=== PATIENT | female | born 1990 | race American Indian/Alaskan Native ===

== ENCOUNTER 2021-10-07 22:00 | Observation (INO) | payer MEDICAID ==
[2021-10-07] MEDS ORDERED: SODIUM CHLORIDE 0.9% 1000 ML 1,000 ML IV ONE (22:54)
--- NOTE | 2021-10-07 23:03 | Emergency Department Report ---
ED Chest Pain HPI - General Chief Complaint: Pain General Stated Complaint: PAIN, POST OP Time Seen by Provider: 10/07/21 22:28 Source: EMS Mode of arrival: Stretcher Limitations: No Limitations - History of Present Illness Initial Comments: 31-year-old female the past medical history of asthma presents to the hospital complaining of chest pain and shortness of breath while returning from [place] today. Patient received a BBL surgery in [place] on October 04. She flew back today. She states while on the plane she had chest tightness and shortness of breath. She did not have access to her inhaler at the time. Symptoms have since resolved however, she expresses concern that she might have a blood clot. Patient also complains of generalized body pain secondary to BBL. She is currently taking Percocet 5 mg with last dose 4 hours ago - Related Data Allergies Allergy/AdvReac Type Severity Reaction Status Date / Time No Known Allergies Allergy Verified 10/07/21 23:00 Heart Score - HEART Score History: Slightly suspicious EKG: Normal Age: < 45 Risk factors: 1-2 risk factors Troponin: < normal limit HEART Score: 1 - EKG Read Time Time EKG Completed: 05:28 EKG Read Time: 05:34 ED Review of Systems ROS: Stated complaint: PAIN, POST OP Other details as noted in HPI Comment: All other systems reviewed and negative ED Physical Exam - General Limitations: No Limitations - Other Other exam information: General: No acute distress Head: Atraumatic Eyes: normal appearance ENT: Moist mucous membranes Neck: Normal appearance, no midline tenderness Chest: Clear to auscultation bilaterally CV: Regular rate and rhythm Abdomen: abdominal binder body suit on with serosanguineous drainage Back: Normal inspection Extremity: Normal inspection, full range of motion Neuro: Alert O x 3, no facial asymmetry, speech clear, no gross motor sensory deficit Psych: Appropriate behavior Skin: No rash ED Course Vital Signs 10/07/21 10/07/21 10/07/21 22:54 23:28 23:31 Temperature Pulse Rate Respiratory Rate Blood Pressure 127/76 Blood Pressure [Right] O2 Sat by Pulse 100 100 100 Oximetry 10/07/21 10/08/21 10/08/21 23:45 00:01 01:14 Temperature 98.1 F Pulse Rate 100 H Respiratory 18 Rate Blood Pressure 127/76 130/76 Blood Pressure 127/68 [Right] O2 Sat by Pulse 99 100 100 Oximetry - Reevaluation(s) Reevaluation #1: 10/08/21 04:52 During ED stay patient had persistent tachycardia. Heart rate was in the 120s while on the phone with minimal movement. At rest while sleeping heart rate will go down to 100-105. Patient denied being in pain during this time. After 2 L of normal saline repeat hemoglobin down to 7.3. Patient does endorsed shortness of breath and lightheadedness therefore patient will be admitted for blood transfusion. CT abdomen and pelvis will be performed to rule out possible fluid/blood collection. It is likely the patient had acute loss from initial procedure does not appear to have any active hemorrhage. No signs of hypotension during ED stay YURY score - Yury Score Age > 65: (0) No Aspirin use within the Past 7 Days: (0) No 3 or more CAD Risk Factors: (0) No 2 or more Angina events in past 24 hrs: (0) No Known CAD with more than 50% Stenosis: (0) No Elevated Cardiac Markers: (0) No ST Deviation Greater than 0.5mm: (0) No YURY Score: 0 ED Medical Decision Making - Lab Data Result diagrams: 10/08/21 03:44 10/07/21 23:09 Lab Results 10/07/21 10/07/21 10/07/21 Range/Units 23:09 23:09 23:09 WBC 11.1 H (4.5-11.0) K/mm3 RBC 2.30 L (3.65-5.03) M/mm3 Hgb 7.6 L (10.1-14.3) gm/dl Hct 22.7 L (30.3-42.9) % MCV 99 H (79-97) fl MCH 33 H (28-32) pg MCHC 33 (30-34) % RDW 13.0 L (13.2-15.2) % Plt Count 325 (140-440) K/mm3 Lymph % (Auto) 16.6 (13.4-35.0) % [place] % (Auto) 8.4 H (0.0-7.3) % Eos % (Auto) 0.3 (0.0-4.3) % Baso % (Auto) 0.2 (0.0-1.8) % Lymph # (Auto) 1.8 (1.2-5.4) K/mm3 [place] # (Auto) 0.9 H (0.0-0.8) K/mm3 Eos # (Auto) 0.0 (0.0-0.4) K/mm3 Baso # (Auto) 0.0 (0.0-0.1) K/mm3 Seg Neutrophils % 74.5 H (40.0-70.0) % Seg Neutrophils # 8.2 H (1.8-7.7) K/mm3 Sodium 133 L (137-145) mmol/L Potassium 3.6 (3.6-5.0) mmol/L Chloride 94.9 L (98-107) mmol/L Carbon Dioxide 20 L (22-30) mmol/L Anion Gap 22 mmol/L BUN 6 L (7-17) mg/dL Creatinine 0.6 (0.6-1.2) mg/dL Estimated GFR > 60 ml/min BUN/Creatinine Ratio 10 % Glucose 112 H (65-100) mg/dL Calcium 8.8 (8.4-10.2) mg/dL Troponin T < 0.010 (0.00-0.029) ng/mL HCG, Quant (0-4) mIU/mL Blood Type Crossmatch 10/07/21 10/08/21 10/08/21 Range/Units 23:09 03:44 03:44 WBC (4.5-11.0) K/mm3 RBC (3.65-5.03) M/mm3 Hgb 7.3 L (10.1-14.3) gm/dl Hct 22.1 L (30.3-42.9) % MCV (79-97) fl MCH (28-32) pg MCHC (30-34) % RDW (13.2-15.2) % Plt Count (140-440) K/mm3 Lymph % (Auto) (13.4-35.0) % [place] % (Auto) (0.0-7.3) % Eos % (Auto) (0.0-4.3) % Baso % (Auto) (0.0-1.8) % Lymph # (Auto) (1.2-5.4) K/mm3 [place] # (Auto) (0.0-0.8) K/mm3 Eos # (Auto) (0.0-0.4) K/mm3 Baso # (Auto) (0.0-0.1) K/mm3 Seg Neutrophils % (40.0-70.0) % Seg Neutrophils # (1.8-7.7) K/mm3 Sodium (137-145) mmol/L Potassium (3.6-5.0) mmol/L Chloride (98-107) mmol/L Carbon Dioxide (22-30) mmol/L Anion Gap mmol/L BUN (7-17) mg/dL Creatinine (0.6-1.2) mg/dL Estimated GFR ml/min BUN/Creatinine Ratio % Glucose (65-100) mg/dL Calcium (8.4-10.2) mg/dL Troponin T (0.00-0.029) ng/mL HCG, Quant < 2 (0-4) mIU/mL Blood Type O POSITIVE Crossmatch See Detail - EKG Data -: EKG Interpreted by Tx EKG shows normal: sinus rhythm, ST-T waves (no stemi) Rate: tachycardia (103) - EKG Data When compared to previous EKG there are: previous EKG unavailable - Radiology Data Radiology results: report reviewed CTA CHEST WITH CONTRAST INDICATION / CLINICAL INFORMATION: chest pain, sob, recent surgery. TECHNIQUE: Axial CT images were obtained through the chest after injection of 100 cc Omnipaque 350 IV contrast. 3 plane MIP and/or 3D reconstructions were produced. All CT scans at this location are performed using CT dose reduction for ALARA by means of automated exposure control. COMPARISON: None available. FINDINGS: VASCULAR FINDINGS: PULMONARY ARTERY: Pulmonary artery is normal in size. No filling defects are present compatible with pulmonary artery embolus.. THORACIC AORTA: No significant abnormality. CORONARY ARTERY CALCIFICATION: Absent -- None. NONVASCULAR FINDINGS: LOWER NECK: Soft tissues and musculature of the lower neck demonstrate no significant abnormality. The thyroid demonstrates no significant abnormality. HEART: No significant abnormality. MEDIASTINUM / LATRICIA: No significant abnormality. ESOPHAGUS: No significant abnormality. LYMPH NODES: No adenopathy within the axilla, mediastinum, or latricia. LUNGS: No acute air space or interstitial disease. PLEURA: No pleural effusion. No pneumothorax. THORACIC SOFT TISSUES: Small collections of subcutaneous gas are noted overlying the mid axillary line of the lower right rib cage. BONES: No significant skeletal abnormalities. ADDITIONAL CHEST FINDINGS: None. UPPER ABDOMEN: Mild hepatic steatosis. IMPRESSION: 1. No CT evidence for pulmonary embolism. 2. Subcutaneous gas right chest wall as detailed may relate to recent surgery. CT ABDOMEN AND PELVIS WITHOUT CONTRAST INDICATION / CLINICAL INFORMATION: anemia s/p BBL. TECHNIQUE: Axial CT images were obtained through the abdomen and pelvis without IV contrast. All CT scans at this location are performed using CT dose reduction for ALARA by means of automated exposure control. COMPARISON: CT angiography of the chest 10/08/2021 FINDINGS: LOWER CHEST: No significant abnormality of the imaged chest. LIVER: No focal lesion. No acute findings. GALLBLADDER / BILE DUCTS: No significant abnormality. Biliary ducts grossly unremarkable. SPLEEN: No significant abnormality. PANCREAS: No significant abnormality. ADRENALS: No significant abnormality. KIDNEYS/URETERS: No stones or hydronephrosis. No solid renal lesion. Residual contrast within the renal collecting system. STOMACH / DUODENUM / SMALL BOWEL: The stomach, duodenum, and small bowel demonstrate no significant abnormality. No specific abnormality of the mesentery demonstrated. COLON: No significant abnormality. APPENDIX: No significant abnormality. PERITONEUM: No free air or free fluid are present within the abdomen or pelvis. LYMPH NODES: No significant adenopathy. AORTA / ARTERIES: No significant abnormality. IVC / VEINS: No significant abnormality. URINARY BLADDER: No significant abnormality. Residual contrast from prior study. REPRODUCTIVE ORGANS: No significant abnormality. ADDITIONAL ABDOMINAL/PELVIC FINDINGS: Small collections of subcutaneous gas are present within the soft tissues of the sac. Additional subcutaneous reticular attenuation suggesting edema are present. SKELETAL SYSTEM: No significant abnormality. IMPRESSION: 1. Body wall edema and areas of subcutaneous gas likely related to recent procedure. - Medical Decision Making 31-year-old female presents to the hospital complaints of chest pain and shortness of breath. Pulmonary embolism was ruled out with CT angiogram. Patient also found to have symptomatic anemia with persistent tachycardia despite IV fluids and pain control. [address] abdomen and pelvis does not show acute fluid collection or hemorrhage. Anemia likely a result from blood loss from initial procedure. 1 unit of PRBCs ordered. Patient to be admitted to the hospitalist service Critical Care Time: No Critical care attestation.: If time is entered above; I have spent that time in minutes in the direct care of this critically ill patient, excluding procedure time. ED Disposition Clinical Impression: Symptomatic anemia, Postoperative anemia Disposition: 09 ADMITTED INPATIENT Is pt being admited?: Yes Condition: Stable Time of Disposition: 05:37 (Dr Meraz)
[2021-10-07 23:37] LABS: Basophils % (Auto) 0.2 % (0.0-1.8); Eosinophils % (Auto) 0.3 % (0.0-4.3); Hematocrit 22.7 % (30.3-42.9); Hemoglobin 7.6 gm/dl (10.1-14.3); Lymphocytes # (Auto) 1.8 K/mm3 (1.2-5.4); Lymphocytes % (Auto) 16.6 % (13.4-35.0); Mean Corpuscular HGB Conc 33 % (30-34); Mean Corpuscular Volume 99 fl (79-97); Monocytes # (Auto) 0.9 K/mm3 (0.0-0.8); Monocytes % (Auto) 8.4 % (0.0-7.3); Platelet Count 325 K/mm3 (140-440)
[2021-10-07 23:52] LABS: Blood Urea Nitrogen 6 mg/dL (7-17); Calcium 8.8 mg/dL (8.4-10.2); Hemolysis Index 0
[2021-10-07 23:54] LABS: BUN/Creatinine Ratio 10
[2021-10-07] MEDS ORDERED: ONDANSETRON 4 MG/2 ML INJ IV ONE (23:54)
[2021-10-07] MEDS ORDERED: MORPHINE 4 MG/1 ML INJ IV ONE (23:54)
--- NOTE | 2021-10-08 01:08 | Cat Scan Report ---
CTA CHEST WITH CONTRAST INDICATION / CLINICAL INFORMATION: chest pain, sob, recent surgery. TECHNIQUE: Axial CT images were obtained through the chest after injection of 100 cc Omnipaque 350 IV contrast. 3 plane MIP and/or 3D reconstructions were produced. All CT scans at this location are per formed using CT dose reduction for ALARA by means of automated exposure control. COMPARISON: None available. FINDINGS: VASCULAR FINDINGS: PULMONARY ARTERY: Pulmonary artery is normal in size. No filling defects are present compatible with pulmonary artery embolus.. THORACIC AORTA: No significant abnormality. CORONARY ARTERY CALCIFICATION: Absent -- None. NONVASCULAR FINDINGS: LOWER NECK: Soft tissues and musculature of the lower neck demonstrate no significant abnormality. Th e thyroid demonstrates no significant abnormality. HEART: No significant abnormality. MEDIASTINUM / LATRICIA: No significant abnormality. ESOPHAGUS: No significant abnormality. LYMPH NODES: No adenopathy within the axilla, mediastinum, or latricia. LUNGS: No acute air space or interstitial disease. PLEURA: No pleural effusion. No pneumothorax. THORACIC SOFT TISSUES: Small collections of subcutaneous gas are noted overlying the mid axillary jose g e of the lower right rib cage. BONES: No significant skeletal abnormalities. ADDITIONAL CHEST FINDINGS: None. UPPER ABDOMEN: Mild hepatic steatosis. IMPRESSION: 1. No CT evidence for pulmonary embolism. 2. Subcutaneous gas right chest wall as detailed may relate to recent surgery. Signer Name: Florencio Jay II, MD Signed: 10/08/2021 1:03 AM Workstation Name: [id number]
[2021-10-08] MEDS ORDERED: SODIUM CHLORIDE 0.9% 1000 ML 1,000 ML IV ONE (01:35)
[2021-10-08 04:17] LABS: Hematocrit 22.1 % (30.3-42.9); Hemoglobin 7.3 gm/dl (10.1-14.3)
[2021-10-08] MEDS ORDERED: SODIUM CHLORIDE 0.9% 500 ML 500 ML IV ONE (04:36)
--- NOTE | 2021-10-08 05:28 | Cat Scan Report ---
CT ABDOMEN AND PELVIS WITHOUT CONTRAST INDICATION / CLINICAL INFORMATION: anemia s/p BBL. TECHNIQUE: Axial CT images were obtained through the abdomen and pelvis without IV contrast. All CT scans at this location are performed using CT dose reduction for ALARA by means of automated exposure control. COMPARISON: CT angiography of the chest 10/08/2021 FINDINGS: LOWER CHEST: No significant abnormality of the imaged chest. LIVER: No focal lesion. No acute findings. GALLBLADDER / BILE DUCTS: No significant abnormality. Biliary ducts grossly unremarkable. SPLEEN: No significant abnormality. PANCREAS: No significant abnormality. ADRENALS: No significant abnormality. KIDNEYS/URETERS: No stones or hydronephrosis. No solid renal lesion. Residual contrast within the radha al collecting system. STOMACH / DUODENUM / SMALL BOWEL: The stomach, duodenum, and small bowel demonstrate no significant a bnormality. No specific abnormality of the mesentery demonstrated. COLON: No significant abnormality. APPENDIX: No significant abnormality. PERITONEUM: No free air or free fluid are present within the abdomen or pelvis. LYMPH NODES: No significant adenopathy. AORTA / ARTERIES: No significant abnormality. IVC / VEINS: No significant abnormality. URINARY BLADDER: No significant abnormality. Residual contrast from prior study. REPRODUCTIVE ORGANS: No significant abnormality. ADDITIONAL ABDOMINAL/PELVIC FINDINGS: Small collections of subcutaneous gas are present within the so ft tissues of the sac. Additional subcutaneous reticular attenuation suggesting edema are present. SKELETAL SYSTEM: No significant abnormality. IMPRESSION: 1. Body wall edema and areas of subcutaneous gas likely related to recent procedure. Signer Name: Florencio Jay II, MD Signed: 10/08/2021 5:24 AM Workstation Name: [id number]
[2021-10-08] MEDS ORDERED: ACETAMINOPHEN 325 MG TAB PO PRN (05:48)
[2021-10-08] MEDS ORDERED: ALBUTEROL 2.5 MG/3 ML NEBU IH PRN (05:48)
[2021-10-08] MEDS ORDERED: MORPHINE 4 MG/1 ML INJ IV PRN (05:48)
[2021-10-08] MEDS ORDERED: ONDANSETRON 4 MG/2 ML INJ IV PRN (05:48)
[2021-10-08] MEDS ORDERED: MORPHINE 2 MG/1 ML INJ IV PRN (05:48)
--- NOTE | 2021-10-08 05:55 | History and Physical Report ---
History of Present Illness Date of examination: 10/08/21 Date of admission: 10/08/21 Chief complaint: Pain General History of present illness: 31-year-old female the past medical history of asthma presents to the hospital complaining of chest pain and shortness of breath while returning from [place] today. Patient received a BBL surgery in [place] on October 04. She flew back today. She states while on the plane she had chest tightness and shortness of breath. She did not have access to her inhaler at the time. Symptoms have since resolved however, she expresses concern that she might have a blood clot. Patient also complains of generalized body pain secondary to BBL. In the emergency room patient is found to have a hemoglobin of 7.[address] shows no CT evidence for PE. Subcutaneous gas right chest wall as detailed may related to recent surgery Past History Past Medical History: other (Asthma) Past Surgical History: Other (BBL) Social history: no significant social history Family history: no significant family history Medications and Allergies Allergies Allergy/AdvReac Type Severity Reaction Status Date / Time No Known Allergies Allergy Verified 10/07/21 23:00 Active Meds: Active Medications Acetaminophen (Acetaminophen 325 Mg Tab) 650 mg PO Q4H PRN PRN Reason: Pain MILD(1-3)/Fever >100.5/WATTS Review of Systems Constitutional: other (Generalized pain) Cardiovascular: chest pain, shortness of breath Exam - Constitutional Vitals: Temp Pulse Resp BP Pulse Ox 98.1 F 100 H 18 127/68 100 10/08/21 01:14 10/08/21 01:14 10/08/21 01:14 10/08/21 01:14 10/08/21 01:14 General appearance: Present: no acute distress, well-nourished - EENT Eyes: Present: PERRL ENT: hearing intact, clear oral mucosa - Neck Neck: Present: supple, normal ROM - Respiratory Respiratory effort: normal Respiratory: bilateral: CTA - Cardiovascular Heart Sounds: Present: S1 & S2. Absent: rub, click - Extremities Extremities: pulses symmetrical, No edema Peripheral Pulses: within normal limits - Abdominal General gastrointestinal: Present: soft, non-tender, non-distended, normal bowel sounds Female genitourinary: Present: normal - Integumentary Integumentary: Present: clear, warm, dry - Musculoskeletal Musculoskeletal: gait normal, strength equal bilaterally - Psychiatric Psychiatric: appropriate mood/affect, intact judgment & insight - Neurologic Neurologic: CNII-XII intact, moves all extremities HEART Score - HEART Score EKG: Normal Age: < 45 Risk factors: 1-2 risk factors Troponin: Troponin T < 0.010 ng/mL (0.00-0.029) 10/07/21 23:09 Troponin: < normal limit Results - Labs CBC & Chem 7: 10/08/21 03:44 10/07/21 23:09 Labs: Laboratory Last Values WBC 11.1 K/mm3 (4.5-11.0) H 10/07/21 23:09 RBC 2.30 M/mm3 (3.65-5.03) L 10/07/21 23:09 Hgb 7.3 gm/dl (10.1-14.3) L 10/08/21 03:44 Hct 22.1 % (30.3-42.9) L 10/08/21 03:44 MCV 99 fl (79-97) H 10/07/21 23:09 MCH 33 pg (28-32) H 10/07/21 23:09 MCHC 33 % (30-34) 10/07/21 23:09 RDW 13.0 % (13.2-15.2) L 10/07/21 23:09 Plt Count 325 K/mm3 (140-440) 10/07/21 23:09 Lymph % (Auto) 16.6 % (13.4-35.0) 10/07/21 23:09 [place] % (Auto) 8.4 % (0.0-7.3) H 10/07/21 23:09 Eos % (Auto) 0.3 % (0.0-4.3) 10/07/21 23:09 Baso % (Auto) 0.2 % (0.0-1.8) 10/07/21 23:09 Lymph # (Auto) 1.8 K/mm3 (1.2-5.4) 10/07/21 23:09 [place] # (Auto) 0.9 K/mm3 (0.0-0.8) H 10/07/21 23:09 Eos # (Auto) 0.0 K/mm3 (0.0-0.4) 10/07/21 23:09 Baso # (Auto) 0.0 K/mm3 (0.0-0.1) 10/07/21 23:09 Seg Neutrophils % 74.5 % (40.0-70.0) H 10/07/21 23:09 Seg Neutrophils # 8.2 K/mm3 (1.8-7.7) H 10/07/21 23:09 Sodium 133 mmol/L (137-145) L 10/07/21 23:09 Potassium 3.6 mmol/L (3.6-5.0) 10/07/21 23:09 Chloride 94.9 mmol/L (98-107) L 10/07/21 23:09 Carbon Dioxide 20 mmol/L (22-30) L 10/07/21 23:09 Anion Gap 22 mmol/L 10/07/21 23:09 BUN 6 mg/dL (7-17) L 10/07/21 23:09 Creatinine 0.6 mg/dL (0.6-1.2) 10/07/21 23:09 Estimated GFR > 60 ml/min 10/07/21 23:09 BUN/Creatinine Ratio 10 % 10/07/21 23:09 Glucose 112 mg/dL (65-100) H 10/07/21 23:09 Calcium 8.8 mg/dL (8.4-10.2) 10/07/21 23:09 Troponin T < 0.010 ng/mL (0.00-0.029) 10/07/21 23:09 HCG, Quant < 2 mIU/mL (0-4) 10/07/21 23:09 Blood Type O POSITIVE 10/08/21 03:44 Antibody Screen Negative 10/08/21 03:44 Crossmatch See Detail 10/08/21 03:44 - Imaging and Cardiology CT scan - chest: report reviewed Assessment and Plan VTE prophylaxis?: Mechanical Plan of care discussed with patient/family: Yes - Patient Problems (1) Symptomatic anemia Current Visit: Yes Status: Acute Plan to address problem: Admit the patient to the medical floor. Anemia secondary to recent surgery. We will transfuse 1 unit of packed red blood cell. Pepcid 20 mg p.o. twice daily. We will recheck the CBC. (2) Asthma Current Visit: Yes Status: Acute Plan to address problem: Oxygen via nasal cannula 3 L/min. DuoNeb by nebulizer every 4 hours. Albuterol via nebulizer every 4 hours as needed (3) Chest pain Current Visit: Yes Status: Acute Plan to address problem: Initial cardiac enzyme is negative troponin 0.010. We will monitor the patient closely. We do the serial cardiac enzyme (4) Postoperative anemia Current Visit: Yes Status: Acute Plan to address problem: We will transfuse 1 unit of packed red blood cell. Pepcid 20 mg p.o. twice daily. We will recheck the CBC. (5) DVT prophylaxis Current Visit: Yes Status: Acute Plan to address problem: SCD for DVT prophylaxis. Pepcid 20 mg p.o. twice daily for GI prophylaxis. Patient is a full code
[2021-10-08] MEDS ORDERED: CLINDAMYCIN 600 MG/50 mL 600 MG/50 ML BAG IV SCH (06:00)
[2021-10-08] MEDS: IPRATROPIUM/ALBUTEROL SULFATE 3 ML AMPUL.NEB IH SCH ×3 (09:11→20:51)
[2021-10-08] MEDS ORDERED: FAMOTIDINE 20 MG TAB PO SCH (10:00)
--- NOTE | 2021-10-08 10:07 | Electrocardiograph Report ---
[facility] Test Date: 2021-10-08 Test Time: 05:28:29 Pat Name: MELBA MTZ Department: Room: [place] [address] Gender: F Rfid Technician: FLYNN : 1990 Requested By: DANISH ROJO Order Number: [id number] Reading MD: Tonio Celeste Measurements Intervals [place] Rate: 103 P: 54 PA: 126 QRS: 67 QRSD: 77 T: -19 QT: 361 QTc: 472 Interpretive Statements Sinus tachycardia Borderline T abnormalities, diffuse leads No previous ECG available for comparison Electronically Signed On 10-08-2021 10:07:05 EDT by Tonio Celeste
--- NOTE | 2021-10-08 15:48 | Discharge Summary ---
Providers - Providers Date of Admission: 10/08/21 05:49 Date of discharge: 10/08/21 Attending physician: CHARLINE BELL Primary care physician: BUSINESS ENGLISH INSTRUCTOR Hospitalization Condition: Stable Hospital course: 31-year-old female the past medical history of asthma presents to the hospital complaining of chest pain and shortness of breath while returning from [place] today. Patient received a BBL surgery in [place] on October 04. She flew back today. She states while on the plane she had chest tightness and shortness of breath. She did not have access to her inhaler at the time. Symptoms have since resolved however, she expresses concern that she might have a blood clot. Patient also complains of generalized body pain secondary to BBL. In the emergency room patient is found to have a hemoglobin of 7.[address] shows no CT evidence for PE. Subcutaneous gas right chest wall as detailed may related to recent surgery patient had a hemoglobin of 7.6 Assessment and Plan VTE prophylaxis?: Mechanical Plan of care discussed with patient/family: Yes - Patient Problems (1) Symptomatic anemia Current Visit: Yes Status: Acute Plan to address problem: Patient was transfused 1 unit of packed red blood cells Patient symptomatically better Patient had hemoglobin of 7.6 patient should have been treated with iron instead of he 1 unit of. Patient will be discharged on iron tablets r packed red blood cells -- (2) Asthma Current Visit: Yes Status: Acute Plan to address problem: Oxygen via nasal cannula 3 L/min. DuoNeb by nebulizer every 4 hours. Albuterol via nebulizer every 4 hours as needed (3) Chest pain Current Visit: Yes Status: Acute Plan to address problem: Initial cardiac enzyme is negative troponin 0.010. We will monitor the patient closely. We do the serial cardiac enzyme (4) Postoperative anemia Current Visit: Yes Status: Acute Plan to address problem: We will transfuse 1 unit of packed red blood cell. Pepcid 20 mg p.o. twice daily. We will recheck the CBC. (5) DVT prophylaxis Current Visit: Yes Status: Acute Plan to address problem: SCD for DVT prophylaxis. Pepcid 20 mg p.o. twice daily for GI prophylaxis. Patient is a full code Disposition: 01 HOME / SELF CARE / HOMELESS Final Discharge Diagnosis (Prints w/discharge instructions): symptomatic anemia. Postoperative anemia. Asthma. Atypical chest pain Time spent for discharge: 35 minutes - Discharge Diagnoses (1) Symptomatic anemia Status: Acute (2) Asthma Status: Acute (3) Chest pain Status: Acute (4) Postoperative anemia Status: Acute (5) DVT prophylaxis Status: Acute Core Measure Documentation - Palliative Care Palliative Care/ Comfort Measures: Not Applicable - Core Measures Any of the following diagnoses?: none Exam - Constitutional Vitals: Temp Pulse Resp BP Pulse Ox 98.5 F 116 H 17 154/69 99 10/08/21 13:14 10/08/21 15:16 10/08/21 15:16 10/08/21 15:16 10/08/21 15:16 General appearance: Present: no acute distress, well-nourished - EENT Eyes: Present: PERRL ENT: hearing intact, clear oral mucosa - Neck Neck: Present: supple, normal ROM - Respiratory Respiratory effort: normal Respiratory: bilateral: CTA - Cardiovascular Heart rate: 76 Rhythm: regular Heart Sounds: Present: S1 & S2. Absent: rub, click - Extremities Extremities: pulses symmetrical, No edema Peripheral Pulses: within normal limits - Abdominal General gastrointestinal: Present: soft, non-tender, non-distended, normal bowel sounds Female genitourinary: Present: normal - Integumentary Integumentary: Present: clear, warm, dry - Musculoskeletal Musculoskeletal: gait normal, strength equal bilaterally - Psychiatric Psychiatric: appropriate mood/affect, intact judgment & insight - Neurologic Neurologic: CNII-XII intact, moves all extremities Plan Activity: no restrictions Diet: regular Follow up with: PRIMARY CARE, [Primary Care Provider] - 7 Days
[2021-10-08 20:18] VITALS: BP 145/65
== END 2021-10-08 20:19 | disposition home or self-care (01) ==
LOC: ED 22:00 → INTOOBSV 10-08 05:49 → 3A 10-08 05:49
PROVIDERS: ADMIT Hospitalist; ATTEND Internal Medicine
DX: D64.9 Anemia, unspecified (principal); J45.909 Unspecified asthma, uncomplicated; R07.89 Other chest pain; D64.89 Other specified anemias; Z79.899 Other long term (current) drug therapy; Z98.890 Other specified postprocedural states
CPT/HCPCS: 36415; 71275; 74176; 80048; 84484; 84702; 85014; 85018; 85025; 86850; 86900; 86901; 86920; 93005; 96361; 96365; 96375; 96376; 99285; G0378; J2270; J2405; J7030; J7040; J7502; P9016; Q9967